=== PATIENT | female | born 1990 ===

== ENCOUNTER 2019-09-07 11:26 | Inpatient (IN) | payer OTHER ==
[~2019-09-07] VITALS: Ht 162.6 cm; Wt 80.9 kg
[2019-09-14] VITALS (28 sets, daily range): BP systolic 91–176; BP diastolic 55–91; PULSE 64–144; TEMP 97.8–98.5
--- NOTE | 2019-09-14 07:30 | NUR ---
Pt here for scheduled induction of labor. 39.6 weeks gestation. G2.L1. Pt to room LDR 3 and to EFM, explained. IV started to left forearm x 1 attempt, blood drawn and then LR infusing without difficulty. Assessment complete and consents signed. Pt states baby has been active and states having irregular contractions over the weekend. Denies any vaginal bleeding or leaking of fluid. GBS negative. 0800:SVE: 4/80/-2 with bulgy bag of marin palpated. FHR reactive and VSS. 0815:Pitocin started at 2mu per order.
[2019-09-14] MEDS ORDERED: PRENATAL PO (08:02)
[2019-09-14 08:38] LABS: BASO % 0.3 % (0.0-2.0); EOS # 0.1 (0.0-0.7); EOS % 1.2 % (0-4.0); GRAN # 7.6 (1.4-6.5); GRAN % 70.8 % (42.2-75.2); HEMATOCRIT 37.4 % (37.0-47.0); HEMOGLOBIN 12.7 g/dl (12.5-16.0); LYMPH # 2.3 (1.2-3.4); LYMPH % 21.2 % (20.0-51.0); MEAN CELL VOLUME 95 fl (80.0-100.0); MEAN CORPUSCULAR HEMOGLOBIN 32 pg (27.0-31.0); MEAN CORPUSCULAR HGB CONC 34 g/dl (33.0-37.0); MONO # 0.6 (0.1-0.6); MONO % 5.7 % (1.7-9.3); PLATELET COUNT 144 K/mm3 (130-400); RED BLOOD COUNT 3.93 M/mm3 (4.10-5.30); REDCELL DISTRIBUTION WIDTH-CV 13.6 % (11.5-14.5)
--- NOTE | 2019-09-14 11:05 | NUR ---
Todd YARD ATTENDANT here and at bedside. Pt sitting up on side of bed. Epidural placed, test dose 1119 and pt tolerated well. See anesthesia notes. Pt repositioned to left side.
--- NOTE | 2019-09-14 11:40 | NUR ---
Variable noted, FHR decreased to 90 bpm for 30 seconds. SVE: 7-8/100/0. 1155: SVE 9/100/+1. Pt feeling pain on right side. Repositioned and Todd COMPOUNDING ASSISTANT at bedside. 1200:Dr Ford called and notified. He will head this way for delivery. Recurrent variable decelerations noted. Pt prepped for delivery. 1218:Dr Ford here and SVE: complete +2. 1225:Pt starts to push with contractions, physician at bedside. Pt continues to push. Intermittent variable decelerations noted. Physician monitoring strip at bedside. 1245: of infants head and shoulders. Cord clamped and cut and in care of Erick MESSINA. 1251:Spontaneous delivery of placenta. LR with pitocin infusing at 333ml/hr. first degree lac and bilateral labia lac repaired by physician. Fundus firm, bleeding WNL. Straight catheter used, unknown amount of clear urine noted. 400cc EBL. Pericare done and new pad and ice pack in place.
--- NOTE | 2019-09-14 16:00 | NUR ---
Pt up to bathroom with assist. Voids 800cc urine. Pericare instructions given, pt verbalizes understanding. Bleeding WNL. Pt to wheelchair and to room 216. Denies any pain at this time.
[2019-09-15 00:45] VITALS: BP 107/68; PULSE 76; TEMP 98.8
[2019-09-15] MEDS ORDERED: IBU600 MG PO (08:45)
--- NOTE | 2019-09-15 09:34 | NUR ---
Initial visit; Parents thanked fire regulator for offering congratulations and God's blessings for the of their son. Fruit Room Hand thanked family for choosing [facility].
[2019-09-15 09:45] VITALS: BP 120/70; PULSE 83; TEMP 98
== END 2019-09-15 14:55 | disposition home or self-care (01) | DRG 807 ==
LOC: OB 09-14 06:13 → LDR 09-14 07:24 → OB 09-14 07:24
PROVIDERS: ADMIT Obstetrics & Gynecology
PROC: 10E0XZZ Delivery of Products of Conception, External Approach (ICD-10-PCS; principal; 2019-09-14)
PROC: 10907ZC Drainage of Amniotic Fluid, Therapeutic from Products of Conception, Via Natural or Artificial Opening (ICD-10-PCS; 2019-09-14)
PROC: 0HQ9XZZ Repair Perineum Skin, External Approach (ICD-10-PCS; 2019-09-14)
PROC: 0UQMXZZ Repair Vulva, External Approach (ICD-10-PCS; 2019-09-14)
DX: O70.0 First degree perineal laceration during delivery (principal); Z37.0 Single live birth; Z3A.39 39 weeks gestation of pregnancy
CPT/HCPCS: J2590; J7120

== ENCOUNTER → 2019-09-08 | Outpatient (CLI) | payer OTHER ==
[~2019-09-08] MED LIST: IBU600 MG PO; PRENATAL PO
== END ==
LOC: COL.LAB 09:45
DX: Z20.828 Contact with and (suspected) exposure to other viral communicable diseases (principal)